=== PATIENT | female | born 1970 | race Native Hawaiian/Other Pacific Islander ===

== ENCOUNTER → 2017-07-07 | Outpatient (CLI) | payer OTHER | LOC: FIMAGING 09:30 | PROVIDERS: ATTEND Family Medicine | DX: Z12.31 Encounter for screening mammogram for malignant neoplasm of breast (principal); Z80.3 Family history of malignant neoplasm of breast | CPT/HCPCS: G0202 ==

== ENCOUNTER → 2017-07-15 | Outpatient (CLI) | payer OTHER | LOC: FIMAGING 12:06 | PROVIDERS: ATTEND Family Medicine | DX: R92.8 Other abnormal and inconclusive findings on diagnostic imaging of breast (principal) ==

== ENCOUNTER → 2017-07-29 | Outpatient (CLI) | payer OTHER ==
[~2017-07-29] MED LIST: BUPIVACAINE 0.5% 10 ML SDV ONE; LIDO/EPI 1% **Not for Epidural 20 ML MDV ONE; LIDOCAINE 1% 300 MG/30 ML SDV ONE; THROMBIN (BOVINE) 5,000 UNIT VIAL TP ONE
== END ==
LOC: FIMAGING 07:07
PROVIDERS: ATTEND Family Medicine
PROC: 0HBT3ZX Excision of Right Breast, Percutaneous Approach, Diagnostic (ICD-10-PCS; principal; 2017-07-29)
DX: D05.01 Lobular carcinoma in situ of right breast (principal)
CPT/HCPCS: G0206

== ENCOUNTER → 2018-01-15 | Outpatient (CLI) | payer OTHER | LOC: FIMAGING 08:59 | PROVIDERS: ATTEND Family Medicine | DX: N63.10 Unspecified lump in the right breast, unspecified quadrant (principal); E78.00 Pure hypercholesterolemia, unspecified; N95.1 Menopausal and female climacteric states ==

== ENCOUNTER → 2018-07-20 | Outpatient (CLI) | payer OTHER | LOC: FIMAGING 13:35 | PROVIDERS: ATTEND Family Medicine | DX: Z12.31 Encounter for screening mammogram for malignant neoplasm of breast (principal); N63.21 Unspecified lump in the left breast, upper outer quadrant; D24.1 Benign neoplasm of right breast; Z80.3 Family history of malignant neoplasm of breast ==

== ENCOUNTER → 2018-07-23 | Outpatient (CLI) | payer OTHER | LOC: FIMAGING 13:33 | PROVIDERS: ATTEND Family Medicine | DX: N60.01 Solitary cyst of right breast (principal) ==

== ENCOUNTER → 2019-01-21 | Outpatient (CLI) | payer OTHER | LOC: FIMAGING 12:26 | PROVIDERS: ATTEND Family Medicine | DX: R92.8 Other abnormal and inconclusive findings on diagnostic imaging of breast (principal) ==

== ENCOUNTER → 2019-02-25 | Outpatient (CLI) | payer OTHER | LOC: FIMAGING 17:43 | PROVIDERS: ATTEND Physical Medicine & Rehabilitation | DX: M75.111 Incomplete rotator cuff tear or rupture of right shoulder, not specified as traumatic (principal); M75.51 Bursitis of right shoulder; M19.011 Primary osteoarthritis, right shoulder ==